=== PATIENT | male | born 1980 | race Caucasian/White ===

== ENCOUNTER → 2017-10-01 | Outpatient (REF) | payer BC | LOC: M LAB REF 18:46 | DX: E04.1 Nontoxic single thyroid nodule (principal) | CPT/HCPCS: 88173 ==

== ENCOUNTER → 2024-09-24 | Outpatient (CLI) | payer BC | LOC: M CARPUL 09:22 | PROVIDERS: ATTEND Physician Assistant | DX: R06.02 Shortness of breath (principal) ==

== ENCOUNTER → 2024-11-05 | Outpatient (CLI) | payer BC | LOC: M CARPUL 14:59 | PROVIDERS: ATTEND Physician Assistant | DX: R07.9 Chest pain, unspecified (principal) ==